=== PATIENT | male | born 1975 | race Caucasian/White ===

== ENCOUNTER 2018-06-12 19:23 | Emergency (ER) | payer SELFPAY ==
[~2018-06-12] VITALS: Ht 172.7 cm; Wt 98.4 kg
[~2018-06-12 19:23] MED LIST: HYDR-569 PO
[2018-06-12] MEDS ORDERED: ondansetron/PF 4mg/2ml inj IV ONE (20:20)
[2018-06-12] MEDS ORDERED: normal saline 1000ML IV soln IVB ONE (20:20)
[2018-06-12] MEDS ORDERED: morphine 4 MG/ML inj SYRINge IV PRN (20:20)
[2018-06-12 20:23] LABS: CLARITY,URINE CLEAR (Clear); COLOR,URINE YELLOW (Yellow); GLUCOSE, URINE NEGATIVE (Neg); KETONES,URINE 15 mg/dl (Neg); LEUKOCYTE ESTERASE ,URINE NEGATIVE (Neg); NITRITES, URINE NEGATIVE (Neg); OCCULT BLOOD,URINE NEGATIVE (Neg); PH,URINE 5.5 (4.8-8.0); PROTEIN,URINE NEGATIVE (Neg); UROBILINOGEN,URINE 0.2 E.U/dL (0.2-1.0)
[2018-06-12 20:25] LABS: UA COLLECTION TYPE CLN CATCH MIDSTREAM
[2018-06-12 20:31] LABS: BASOPHILS % (AUTO) 0.4 % (0-1); EOSINOPHILS # (AUTO) 0.3 X10'3 (0-0.9); HEMATOCRIT 44.5 % (42.0-52.0); HEMOGLOBIN 15.2 g/dl (14.0-17.9); LYMPHOCYTES # (AUTO) 2.4 X10'3 (1.1-4.8); LYMPHOCYTES % (AUTO) 23.5 % (21-51); MEAN CORPUSCULAR HEMOGLOBIN 33.4 PG (27.0-31.0); MEAN CORPUSCULAR HGB CONC 34.1 % (33.0-36.5); MEAN CORPUSCULAR VOLUME 97.9 FL (78-98); MONOCYTES # (AUTO) 0.8 X10'3 (0-0.9); NEUTROPHILS # (AUTO) 6.6 X10'3 (1.8-7.7); NEUTROPHILS % (AUTO) 65.1 % (42-75); PLATELET COUNT 242 X10'3 (140-440); RED BLOOD COUNT 4.54 X10'6 (4.70-6.10); RED CELL DISTRIBUTION WIDTH 13.5 % (11.5-14.5); WHITE BLOOD COUNT 10.2 X10'3 (4.5-11.0)
[2018-06-12 20:46] LABS: ALANINE AMINOTRANSFERASE 29 U/L (12-78); ALBUMIN 3.6 G/DL (3.4-5.0); ALBUMIN/GLOBULIN RATIO 0.9 (1.1-1.5); ALKALINE PHOSPHATASE 89 IU/L (46-116); AMYLASE 67 U/L (25-115); ANION GAP 13 (8-16); ASPARTATE AMINO TRANSFERASE 18 U/L (10-37); BILIRUBIN,TOTAL 0.6 MG/DL (0.1-1.0); BLOOD UREA NITROGEN 14 MG/DL (7-18); BUN/CREATININE RATIO 16.7 (5.4-32.0); CALCIUM 8.5 MG/DL (8.5-10.1); CHLORIDE 105 MMOL/L (99-107); CREATININE 0.84 MG/DL (0.60-1.10); GLUCOSE 121 MG/DL (70-104); LIPASE 144 U/L (73-393); POTASSIUM 3.6 MMOL/L (3.5-5.1); SODIUM 141 MMOL/L (135-145); TOTAL CARBON DIOXIDE 22.8 MMOL/L (24-32); TOTAL PROTEIN 7.6 G/DL (6.4-8.2); eGFR > 90 ML/MIN
[2018-06-12] MEDS ORDERED: famotidine 20mg tablet PO ONE (21:20)
[2018-06-12] MEDS ORDERED: mag hydrox/Alum hydrox/simeth 30ml oral suspension PO ONE (21:20)
[2018-06-12] MEDS ORDERED: sucralfate 1 gm tablet PO ONE (21:20)
[2018-06-12] MEDS ORDERED: LIDOcaine Viscous 15ml cup PO ONE (21:20)
[2018-06-12] MEDS ORDERED: FAMO40TA73 PO (21:25)
[2018-06-12 21:55] VITALS: BP 105/76
== END 2018-06-12 21:58 | disposition home or self-care (01) ==
LOC: ER 19:24
DX: K29.00 Acute gastritis without bleeding (principal); Z90.49 Acquired absence of other specified parts of digestive tract; Z79.899 Other long term (current) drug therapy
CPT/HCPCS: 36415; 76700; 80053; 81003; 82150; 83690; 85025; 85610; 96361; 96374; 96375; 99285; J2270; J2405; J7030

== ENCOUNTER 2022-03-14 15:14 | Emergency (ER) | payer MEDICAID ==
[~2022-03-14] VITALS: Ht 172.7 cm; Wt 109.1 kg
[~2022-03-14 15:14] MED LIST changes: +FAMO40TA73 PO; +HYDR-4383 PO; -HYDR-569 PO
[2022-03-14 15:33] LABS: CLARITY,URINE CLEAR (Clear); COLOR,URINE YELLOW (Yellow); GLUCOSE, URINE NEGATIVE (Neg); KETONES,URINE NEGATIVE (Neg); LEUKOCYTE ESTERASE ,URINE NEGATIVE (Neg); NITRITES, URINE NEGATIVE (Neg); OCCULT BLOOD,URINE NEGATIVE (Neg); PH,URINE 5.5 (4.8-8.0); PROTEIN,URINE NEGATIVE (Neg); UROBILINOGEN,URINE 0.2 E.U/dL (0.2-1.0)
[2022-03-14 15:35] LABS: UA COLLECTION TYPE CLN CATCH MIDSTREAM
[2022-03-14 16:09] VITALS: BP 118/72
== END 2022-03-14 16:11 | disposition home or self-care (01) ==
LOC: ER 15:15
DX: Z87.442 Personal history of urinary calculi (principal); Z90.89 Acquired absence of other organs; Z72.89 Other problems related to lifestyle; Z79.899 Other long term (current) drug therapy
CPT/HCPCS: 81003; 99283

== ENCOUNTER 2022-05-10 11:52 | Emergency (ER) | payer MEDICAID ==
[~2022-05-10] VITALS: Ht 172.7 cm; Wt 111.4 kg
[2022-05-10 12:32] VITALS: BP 146/114
[2022-05-10] MEDS ORDERED: HYDR-3965 PO (12:50)
== END 2022-05-10 13:12 | disposition home or self-care (01) ==
LOC: ER 11:53
DX: S82.444A Nondisplaced spiral fracture of shaft of right fibula, initial encounter for closed fracture (principal); Z87.442 Personal history of urinary calculi; Z87.81 Personal history of (healed) traumatic fracture; Z90.49 Acquired absence of other specified parts of digestive tract; Z72.89 Other problems related to lifestyle; Z79.899 Other long term (current) drug therapy; W19.XXXA Unspecified fall, initial encounter; Y93.89 Activity, other specified; Y92.89 Other specified places as the place of occurrence of the external cause; Y99.8 Other external cause status
CPT/HCPCS: 73610; 99283; L4360